=== PATIENT | male | born 1990 | race Caucasian/White ===

== ENCOUNTER 2023-01-25 15:04 | Emergency (ER) | payer OTHER, SELFPAY ==
[2023-01-25 15:14] VITALS: BP 148/94; PULSE 86; RESP 14; TEMP 36.7; O2SAT 98
--- NOTE | 2023-01-25 15:19 | ED.GENADUL_ITS ---
Discharge Plan Disposition Patient Disposition: Home Discharge Details Clinical Impression: Exposure to blood or body fluid Primary Care Provider: Unknown,Unknown ED Provider: Kike Mcgrath Home Meds and New Rx's Prescriptions: New erythromycin 5 mg/gram (0.5 %) ointment 0.5 inch ophthalmic (eye) QID 5 Days Qty: 3.5 0RF Discharge Instructions Instructions: Body Substance Exposure (ED) Additional Instructions: We will contact you with any concerning results. Otherwise continue to monitor for symptoms and return if you develop any symptoms feel free to return the doctors hospital department for reassessment or follow-up with occupational medicine. You have been given a paper prescription for antibiotic ointment in case your eye becomes infected. I feel this is a low likelihood that you do not need to start this right away but just monitor for symptoms and for further irritation use [id number] eyedrops. Referrals: Occupational Medicine [Outside] (As needed for reassessment) Medical Decision Making Patient presenting to the emergency department for chief complaint of body fluid exposure. 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 Patient denies any other injury or trauma, needle sticks, states no cuts in his mouth or injury to his eye. Physical exam shows mild irritation to the left eye otherwise intact mucous and ocular membranes with no other findings noted. We will perform exposure labs and after discussion patient decided to hold off on any prophylactic treatment given the source patient's age and no significant history. We will give patient paper prescription for erythromycin ointment in case he develops any signs of ocular infection otherwise I do not feel that any treatment is needed at this time. After discussion of diagnosis and plan of care patient has no further needs, questions, or concerns and states clear understanding to return to the emergency department for any worsening symptoms. This documentation was generated using [employer] system, please disregard any oddities of phrase or misspellings. HPI General Mode of arrival: ambulatory . Date/Time Provider Initiated Documentation: 01/25/23 15:07 . Limitations to Documentation: no limitations . Information obtained by: patient and RN notes reviewed . History of Present Illness 32 year old M presents to the emergency department with the chief complaint of Body fluid exposure-left eye and mouth, Patient started experiencing this hour(s) (1) Patient notes no other symptoms.. Patient did receive the following treatments prior to arrival, other (Irrigation of left eye) Related Data Home Medications Medication Instructions Recorded Confirmed erythromycin 5 mg/gram (0.5 %) eye 0.5 inch ophthalmic (eye) QID 5 01/25/23 ointment days #3.5 grams Previous Rx's Medication Instructions Recorded erythromycin 5 mg/gram (0.5 %) eye 0.5 inch ophthalmic (eye) QID 5 01/25/23 ointment days #3.5 grams Allergies Allergy/AdvReac Type Severity Reaction Status Date / Time No Known Allergies Allergy Unverified 01/25/23 15:19 General Stated Complaint: Patient Exposure Risk MICHAEL: 4 Review of Systems All systems reviewed & are unremarkable except as noted in HPI and below Eyes Eyes: Reports as per HPI ENT Ears, Nose, Mouth, and Throat: Reports as per HPI PFSH All Active Problems Exposure to blood or body fluid (Acute) Social History Smoking risk assessment performed?: No Exam Const General: cooperative, no acute distress and not ill appearing Orientation: alert, awake and oriented x3 HENMT Head: normal to inspection, normocephalic and atraumatic Ears: hearing grossly normal bilaterally and external ears normal General nose exam: external nose normal Face and sinus: normal facial exam Mouth: oral mucosae normal, lip normal, tongue normal and moist mucous membranes Throat: posterior oropharynx normal Eyes General: appearance normal, both eyes and all related structures Alignment and Position: alignment normal and position normal Periorbital: periorbital findings normal Eyelids: eyelids normal Conjunctivae: conjunctivae normal Sclera: sclerae normal Resp Effort & Inspection: normal respiratory effort, able to speak in complete sentences and no respiratory distress Skin General skin exam: no rashes or lesions noted Neuro General: patient alert, patient awake, patient oriented x3 and moves all extremities Course Vital Signs Vital signs: Vital Signs Temperature 36.7 C 01/25/23 15:14 Pulse 86 01/25/23 15:14 Respiratory Rate 14 01/25/23 15:14 Blood Pressure 148/94 H 01/25/23 15:14 Pulse Oximetry 98 01/25/23 15:14 Temperature 36.7 C 01/25/23 15:14 Temperature Source Skin 01/25/23 15:14 Pulse 86 01/25/23 15:14 Respiratory Rate 14 01/25/23 15:14 Blood Pressure 148/94 H 01/25/23 15:14 Blood Pressure Position Sitting 01/25/23 15:14 Pulse Oximetry 98 01/25/23 15:14 Oxygen Delivery Method Room Air 01/25/23 15:14 Oxygen Flow Rate 0 01/25/23 15:14 Pain Level 0 01/25/23 15:14
[2023-01-25 15:53] LABS: ALT 33 U/L (16-63); AST 15 U/L (15-37); Albumin 4.2 g/dL (3.4-5.0); Alkaline Phosphatase 78 U/L (46-116); Bilirubin, Direct 0.1 mg/dL (0.0-0.2); Bilirubin, Total 0.5 mg/dL (0.2-1.0); Total Protein 7.5 g/dL (6.4-8.2)
[2023-01-29 11:44] LABS: HBs Antibody, Quant >1000.0 mIU/mL (See Note); Hepatitis B Surface Ab Positive (See Note)
[2023-01-29 11:48] LABS: Hepatitis B Surface Ag Negative (Negative)
[2023-01-29 12:41] LABS: Hepatitis C Ab w Rflx HCV PCR Negative (Negative)
== END 2023-01-25 15:37 | disposition home or self-care (01) ==
PROVIDERS: Emergency Provider Nurse Practitioner Family
DX: H57.89 Other specified disorders of eye and adnexa (principal); Z77.21 Contact with and (suspected) exposure to potentially hazardous body fluids
CPT/HCPCS: 80076; 86706; 86803; 87340; 99283; 99284